=== PATIENT | male | born 1955 | race Caucasian/White ===

== ENCOUNTER 2016-06-03 09:14 | Emergency (ER) | payer OTHER ==
[~2016-06-03] VITALS: Ht 175.3 cm; Wt 86.4 kg
[2016-06-03] VITALS (7 sets, daily range): BP systolic 164–219; BP diastolic 102–111; PULSE 85–90; RESP 11–12; O2SAT 96–97
[~2016-06-03 09:14] MED LIST: ASPI-628 PO; MULT-1063 PO; OMEG500C PO; OMEP40CA36 PO
--- NOTE | 2016-06-03 09:29 | ED.REPORT ---
HPI-Dyspnea / Wheezing Date of Service Jun 03, 2016 ED Provider: Tray Llanes MD This is a 60 year old male with a history of hypertension presenting to the emergency department from [place] [facility] due to measured elevated blood pressure just prior to arrival. Pt was at an eye check up when he had high blood pressure and was consequently sent to the ED. Additionally, pt states he was on a flight 2 days ago and experienced two brief episodes of shortness of breath that spontaneously resolved. Duration of each episode approximately 5 minutes. Reports feeling anxious and dyspneic but denies chest pain at that time. Denies chest pain currently. Denies nausea, vomiting, diaphoresis, change LOC, headache , vision changes, slurred speech, extremity swelling or numbness, or difficulty swallowing. Takes 81 mg ASA daily, not on HTN medication at this time. Nursing Notes Stated Complaint: SOB/CHEST TIGHTNESS/HIGH BP Chief Complaint: Dysrhythmia/Cardiac Nursing Notes Reviewed: Yes Allergies: Coded Allergies: No Known Drug Allergies (Verified Allergy, Unknown, 06/03/16) Scheduled Aspirin (Aspir 81) 81 Mg Tablet. 81 MG PO DAILY Omeprazole (Omeprazole) 40 Mg Capsule. 40 MG PO DAILY Miscellaneous Medications Multivits,Ca,Min/Iron/FA/Lycop (Centrum Ultra Men's Tablet) 1 Each Tablet 1 EACH PO Speer-3 Fatty Acids (Fish Oil) 500 Mg Capsule. Unknown Dose PO General Time Seen by MD: 09:27 Chief Complaint Other Hx Obtained From: Patient Arrived By: Walk-in Sudden in Onset?: Yes Onset Occurred: Just prior to arrival Symptom Duration: Since onset Severity: Current: No pain currently Severity: Maximum: No pain Pertinent Negative: Pt denies other symptoms Recent Healthcare: No recent hospitalization, Recent doctor visit Similar Sx Previous: No Past Medical History Past Medical History Reports: Hypertension Past Surgical History Lasix Smoking History Current Some Day Smoker Ambulatory Status Independent Review of Systems Constitutional: Denies: Chills, Fever Respiratory: Reports: Shortness of breath, Denies: Non-productive cough Cardiovascular: Denies: Chest pain Skin: Denies Diaphoresis Complete sys rev & neg: except as marked. Neurologic: Denies: Change LOC, Headache, Numbness, Weakness Physical Exam Initial Vital Signs Vital Signs (First) Date Time Temp Pulse Resp B/P Pulse Ox O2 Delivery O2 Flow Rate FiO2 06/03/16 09:22 36.3 85 12 219/104 97 Room Air - Initial VS: Reviewed Head / Eyes: Atraumatic, Normocephalic, PERRL ENT: Mucous membranes moist, Conjunctiva normal, No scleral icterus Abdomen / GI: Soft, Non-tender, No guarding, No rebound, No distention Extremities: Vascular intact, Neuro intact, No swelling, No tenderness Skin: Warm, Dry, No cyanosis Neurologic: Alert, Oriented, Nonfocal Psychiatric: Mood/affect normal, Behavior normal, Normal thought content General/Constitutional: Awake, Alert Neck: Atraumatic, Supple, No meningismus, Full range of motion, No swelling, Non-tender, No masses Respiratory / Chest: Breath sounds NL, Breath sounds = bilat, No respiratory distress, No rales, No rhonchi, No wheezing Cardiovascular: Heart rate NL, Regular rhythm, Heart sounds NL Trace bilateral lower extremity edema Interpretation & Diagnostics Interpretation & Diagnostics: ANGIO CT IMPRESSION: 1. No acute process. No central pulmonary embolus. 2. Moderate hiatal hernia. 3. Coronary artery disease. Dictated by: Lottie Pereira M.D. on 06/03/2016 at 12:15 Approved by: Lottie Pereira M.D. on 06/03/2016 at 13:23 Lab Results Interpretation Result Diagram: 06/03/16 0940 06/03/16 1025 Test 06/03/16 09:40 06/03/16 10:25 White Blood Count 8.6th/mm3 (3.8-10.1) Red Blood Count 5.35mil/mm3 (4.40-5.80) Hemoglobin 15.7g/dL (13.8-17.2) Hematocrit 44.9% (41.0-50.0) Mean Corpuscular Volume 83.9fL (81-100) Mean Corpuscular Hemoglobin 29.3pg (27.0-35.0) Mean Corpuscular Hemoglobin Concent 35.0% (32.0-37.0) Red Cell Distribution Width 14.6% (12.3-15.4) Platelet Count 267bil/L (150-400) Neutrophils (%) (Auto) 62.5% (40-74) Lymphocytes (%) (Auto) 23.7% (14-46) Monocytes (%) (Auto) 11.3% (4-12) Eosinophils (%) (Auto) 1.7% (0-5) Basophils (%) (Auto) 0.5% (0-3) D-Dimer 0.6mg/L (<0.50) Sodium Level 136mEq/L (134-144) Potassium Level 4.5mEq/L (3.5-5.2) Chloride Level 98mEq/L (97-108) Carbon Dioxide Level 27mmol/L (18-29) Blood Urea Nitrogen 15mg/dL (6-24) Creatinine 0.88mg/dL (0.76-1.27) Estimat Glomerular Filtration Rate 95mL/min (>59) Glucose Level 97mg/dL (60-99) Calcium Level 9.4mg/dL (8.5-10.1) Magnesium Level 2.1mg/dL (1.6-2.6) Total Bilirubin 0.5mg/dL (0.0-1.2) Aspartate Amino Transf (AST/SGOT) 23U/L (0-50) Alanine Aminotransferase (ALT/SGPT) 21U/L (0-44) Alkaline Phosphatase 60U/L (25-150) Troponin T 0.010ug/L (0.0-0.011) Total Protein 7.1g/dL (6.4-8.4) Albumin 4.3g/dL (3.4-5.0) ECG Interpretation ECG Interpretation: NSR at rate of [address] elevation T-wave inversions in V1 Time: 09:32 Interpreted by: ED physician Re-Eval/Medical Decision Med Decision/Clinical Course 60-year-old male presenting with elevated blood pressure reading at eye appointment.(Episode of dyspnea earlier today. No associated shortness of breath. VSS. Blood pressure with systolics 210 on arrival. Improved to 160 with hydralazine. Asymptomatic other than question of dyspnea earlier today. She is normal. Chest x-ray is clear. His labs are unremarkable. She did have a mildly elevated d-dimer and CT Angio chest showed no PE. EKG no signs of ischemia. Normal troponins. He was discharged home with plans to follow up with his primary doctor tomorrow for repeat blood pressure check as he will likely need blood pressure medications going forward. We will await repeat blood pressure check for PMD to start. Return precautions given. Counseled Regarding: Diagnosis, Lab results, Need for follow-up, When/why to return to ED Discharge & Departure Impression: Primary Impression: Hypertension Hypertension type: unspecified secondary hypertension Hypertension goal: unspecified goal Qualified Code: I15.9 - Secondary hypertension, unspecified Additional Impression: Shortness of breath Disposition: Home Discharge Condition All VS Reviewed: Yes Condition: Stable Patient Instructions: Chronic Hypertension (ED) Additional Instructions: Your labs, imaging studies, and ECG were reassuring today. Follow-up with your primary care provider as scheduled for further evaluation of elevated blood pressure. Return to the emergency department for any new or worsening symptoms such as chest pain, nausea, vomiting, or inappropriate sweating. Referrals: Nnamdi Castellon MD (PCP) Scribe Attestation Portions of this note were transcribed by Diego Grullon. I, Dr. Llanes personally performed the history, physical exam and medical decision-making; I reviewed and confirmed the accuracy of the information in the transcribed note. Signed by: vesta Cardoso. 06/03/2016, 15:00. Tray Llanes MD Jun 03, 2016 09:29 DIEGO GRULLON Jun 03, 2016 09:30
[2016-06-03] MEDS ORDERED: hydrALAZINE 20 mg/mL Inj IV ONE ×2 (09:45→11:55)
[2016-06-03 09:54] LABS: BASOPHILS % (AUTO) 0.5 % (0-3); EOSINOPHILS % (AUTO) 1.7 % (0-5); MONOCYTES % (AUTO) 11.3 % (4-12); Mean Corpuscular Hemoglobin 29.3 pg (27.0-35.0); Mean Corpuscular Volume 83.9 fL (81-100); NEUTROPHILS % (AUTO) 62.5 % (40-74); Platelet Count 267 bil/L (150-400)
[2016-06-03 10:58] LABS: TROPONIN T 0.01 ug/L (0.0-0.011)
[2016-06-03 11:09] LABS: Magnesium 2.1 mg/dL (1.6-2.6)
--- NOTE | 2016-06-03 13:25 | DRSVH ---
PROCEDURE: CT ANGIO CHEST PULMONARY EMBOLISM ([id number]) INDICATIONS: dyspnea elevated ddimer TECHNIQUE: After the administration of intravenous contrast, 2 mm thick sections acquired from the pulmonary api tracy to the posterior costophrenic angles. 3-dimensional maximum intensity projection (MIP) coronal a nd sagittal reformats were then acquired through the thorax. For radiation dose reduction, the follo wing was used: automated exposure control, adjustment of mA and/or kV according to patient size. COMPARISON: None. FINDINGS: Image quality: Excellent. Pulmonary arteries: Pulmonary arteries are normal in size, and demonstrate no intraluminal filling d efects to suggest central pulmonary embolism. Lungs and pleura: Lungs are clear. No pleural effusions or pneumothorax. Central and peripheral ai rways are patent. Mediastinum: Heart size is normal, without pericardial effusion. There is calcification of the cardi ovasculature. No mediastinal or hilar adenopathy. Thoracic aorta is normal in caliber and enhancemen t. Esophagus is normal in caliber. There is a moderate hiatal hernia. Bones and chest wall: No suspicious bony lesions. Ribs and thoracic spine appear intact throughout. Thyroid gland is grossly unremarkable. No axillary or supraclavicular adenopathy. Abdomen: Visualized upper abdominal solid organs appear normal in the early arterial phase of enhanc ement. IMPRESSION: 1. No acute process. No central pulmonary embolus. 2. Moderate hiatal hernia. 3. Coronary artery disease. Dictated by: Lottie Pereira M.D. on 06/03/2016 at 12:15 Approved by: Lottie Pereira M.D. on 06/03/2016 at 13:23
--- NOTE | 2016-06-09 14:46 | DRSVH ---
PROCEDURE: X-RAY CHEST ONE VIEW, PORTABLE ([id number]) INDICATIONS: cp, sob TECHNIQUE: One view of the chest was acquired. COMPARISON: None. FINDINGS: Surgical changes and devices: None. Lungs and pleura: No pleural effusions or pneumothorax. Lungs are clear. Mediastinum: Mediastinal contours appear normal. Heart size is normal. Retrocardiac hiatal hernia i s noted. Bones and chest wall: No suspicious bony lesions. Overlying soft tissues appear unremarkable. IMPRESSION: No acute cardiopulmonary disease process. Dictated by: Lanie Mares MD, PhD on 06/03/2016 at 10:12 Approved by: Lanie Mares MD, PhD on 06/03/2016 at 10:13
== END 2016-06-03 13:29 | disposition home or self-care (01) ==
LOC: SED 09:14
DX: I15.9 Secondary hypertension, unspecified (principal); R06.02 Shortness of breath; F41.9 Anxiety disorder, unspecified; F17.200 Nicotine dependence, unspecified, uncomplicated; Z79.82 Long term (current) use of aspirin
CPT/HCPCS: 36415; 71010; 71275; 80053; 83735; 84484; 85025; 85379; 93005; 96374; 96376; 99285; J0360; Q9967